=== PATIENT | male | born 1985 | race Caucasian/White ===

== ENCOUNTER 2016-10-21 10:50 | Emergency (ER) | payer OTHER ==
[~2016-10-21 10:50] MED LIST: AMOX500C PO; BUPR150T12 PO; IBUP800T23 PO; QUET1TAB10 PO; QUET1TAB8 PO; VENL75TA2 PO; Z.0.NO CURRENT MEDS
[2016-10-21 10:52] VITALS: BP 170/104; PULSE 111; RESP 17; TEMP 98.3; O2SAT 98
[2016-10-21] MEDS ORDERED: IBUPROFEN 800 MG TAB PO ONE (12:15)
[2016-10-21] MEDS ORDERED: METHOCARBAMOL 500 MG TAB PO ONE (12:15)
[2016-10-21] MEDS ORDERED: CEPH-460 PO (12:18)
[2016-10-21] MEDS ORDERED: ROBA500T PO (12:18)
[2016-10-21] MEDS ORDERED: BACT800T5 PO (12:18)
[2016-10-21] MEDS ORDERED: IBUP800T23 PO (12:18)
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
[2016-10-21 12:26] VITALS: BP 133/98; PULSE 80; RESP 20; O2SAT 100
== END 2016-10-21 12:41 | disposition home or self-care (01) ==
LOC: NEPB 10:50
DX: L08.9 Local infection of the skin and subcutaneous tissue, unspecified (principal); M54.32 Sciatica, left side; I10 Essential (primary) hypertension; Z72.0 Tobacco use
CPT/HCPCS: 99283